=== PATIENT | male | born 1990 | race Caucasian/White ===

== ENCOUNTER 2021-08-05 20:41 | Emergency (ER) | payer OTHER ==
[2021-08-05] MEDS ORDERED: Ibuprofen 800 MG Tab PO ONE (20:42)
== END 2021-08-05 21:15 | disposition home or self-care (01) ==
LOC: SUPCPDRO 20:41 → FB.ED 20:41
DX: R07.81 Pleurodynia (principal)
CPT/HCPCS: 71101; 99283; A9270

== ENCOUNTER 2022-06-16 04:16 | Emergency (ER) | payer BC ==
[2022-06-16 05:25] LABS: CORONAVIRUS COVID-19 NAA NEGATIVE (NEGATIVE)
== END 2022-06-16 06:05 | disposition home or self-care (01) ==
LOC: FB.ED 04:16
DX: B34.9 Viral infection, unspecified (principal); Z20.822 Contact with and (suspected) exposure to COVID-19
CPT/HCPCS: 0241U; 99284